=== PATIENT | female | born 1990 | race African-American/Black ===

== ENCOUNTER 2017-06-17 21:29 | Emergency (ER) | payer SELFPAY ==
[2017-06-17 22:01] LABS: #Monocytes 0.5 thou/uL (0.11-0.59); %Basophils 0.3 % (0.0-1.0); %Eosinophils 0.1 % (0.0-10.0); %Monocytes 9.3 % (0.0-10.0); Hematocrit 38.7 % (36.0-47.0); Mean Platelet Volume 6.8 fL (7.4-10.4); Red Blood Cell (RBC) Count 3.97 mill/uL (4.20-5.40); White Blood Cell (WBC) Count 5.5 thou/uL (4.8-10.8)
[2017-06-18 00:25] LABS: Bilirubin Negative (Negative); Blood, Urine Negative (Negative); Glucose, Urine (Dipstick) Negative (Negative); Ketone, Urine Negative (Negative); Nitrite Negative (Negative); Protein, Urine (Dipstick) Negative (Neg-Trace)
[2017-06-18 00:28] LABS: Bacteria/HPF None Seen HPF (None Seen); Hyaline Casts/LPF 0-3 HYALINE CAST LPF (0-3 Hyaline); Squamous Epithelial 0-3 HPF (0-3)
[2017-06-18] MEDS ORDERED: Acetaminophen 500 MG TAB ONE ×2 (00:53→00:55)
--- NOTE | 2017-06-18 07:32 | ULT ---
TRANSABDOMINAL PELVIC ULTRASOUND WITH DOPPLER: (MAX SCALE, COLOR FLOW, AND SPECTRAL DOPPLER) Date: 06/17/17 HISTORY: Vaginal bleeding. FINDINGS: A single live intrauterine gestation is seen with measurements corresponding to an estimated gestati onal age of 10 weeks/6 days and CHRISTIE at 01/07/18. heart rate measures 165 beats/minute. No subc horionic hemorrhage is seen. Both ovaries have a normal appearance and demonstrate flow. No free flu id is seen. IMPRESSION: Single live intrauterine of 10 weeks/6 days estimated gestational age and CHRISTIE at 01/07/18. POS: TOÑO
== END 2017-06-18 01:10 | disposition home or self-care (01) ==
LOC: ERS 21:29
DX: O20.0 Threatened abortion (principal); O23.41 Unspecified infection of urinary tract in pregnancy, first trimester; O99.351 Diseases of the nervous system complicating pregnancy, first trimester; G43.909 Migraine, unspecified, not intractable, without status migrainosus; Z3A.10 10 weeks gestation of pregnancy
CPT/HCPCS: 36415; 76856; 81003; 81015; 84702; 85025; 86900; 86901; 93976

== ENCOUNTER 2017-09-14 09:14 | Emergency (ER) | payer OTHER, SELFPAY ==
[2017-09-14] MEDS ORDERED: Adacel (T-DAP) 0.5 ML VIAL ONE (09:54)
== END 2017-09-14 10:16 | disposition home or self-care (01) ==
LOC: ERS 09:14
DX: O9A.212 Injury, poisoning and certain other consequences of external causes complicating pregnancy, second trimester (principal); S81.831A Puncture wound without foreign body, right lower leg, initial encounter; O10.912 Unspecified pre-existing hypertension complicating pregnancy, second trimester; O99.352 Diseases of the nervous system complicating pregnancy, second trimester; G43.909 Migraine, unspecified, not intractable, without status migrainosus; Z3A.23 23 weeks gestation of pregnancy
CPT/HCPCS: 90471; 90715

== ENCOUNTER → 2017-10-03 | Day surgery (SDC) | payer OTHER ==
[~2017-10-03] MED LIST: Acetaminophen 500 MG TAB PO SCH; FLU VACC QS2017-18 36 mo. & older 0.5 ML SYRINGE IM ONE
[2017-10-03 14:14] VITALS: BP 115/77; TEMP 98.6; BMI 46.5
--- NOTE | 2017-10-03 14:59 | PDOC.EVN ---
Event Note - Event Note Event Note: Patient presents to Triage with the On-Call Residents serving as first evaluators. I have seen the patient and reviewed her care. Here for lower pelvic pain, R.L. No contractions, no LOF HPI: Patient of an outside MD who was seen for sono at that location earlier and here for presure eval. She is a 27 yo [id number] 2, SAB2, Living 4 currently at 26 weeks by 6 week sono. She denies UTI sxs but states "dark urine". No recent trauma. HX Preeclampsia in past and on low dose ASA. review of systems: complete and per HPI Allergies: Fluconazole, tramadol OB history: per HPI. Chicken Catcher HX: HX BV this and recent RX for UTI PHYSICAL: 115/77 NAD Abd soft, NT Cervix pending per Resident Monitor: 140s baseline, mod variability. No decels. No CTX Assessment: LAP, NOS. No evidence PTL Plan: 1. Cath UA 2. VP3 3. Check cervix 4. Observe for now No FFN as no evidence contractions.
[2017-10-03 15:34] LABS: Bilirubin Negative (Negative); Blood, Urine Negative (Negative); Clarity CLEAR (Clear); Glucose, Urine (Dipstick) Negative (Negative); Leukocyte Negative (Negative); Nitrite Negative (Negative); Protein, Urine (Dipstick) Negative (Neg-Trace); Specific Gravity, Urine 1.015 (1.002-1.036)
[2017-10-03 15:37] LABS: Bacteria/HPF None Seen HPF (None Seen); Pathc Cast-AUWi Flag 1.49 (0-2.49); WBC/HPF 0-3 HPF (0-3)
[2017-10-03 16:00] LABS: RBC/HPF 0-3 HPF (0-3)
[2017-10-03 16:01] LABS: Hyaline Casts/LPF 0-3 HYALINE CAST LPF (0-3 Hyaline)
--- NOTE | 2017-10-03 16:19 | PDOC.EVN ---
Event Note - Event Note Event Note: Follow up: VP3 with BV and yeast. Allergy to Diflucan. We will offer vaginal outpatient antifungal. For BV, recommend oral flagyl. Cervix was closed on examination.
== END ==
LOC: L&D/OP 13:26
PROVIDERS: ATTEND Obstetrics & Gynecology
DX: O99.89 Other specified diseases and conditions complicating pregnancy, childbirth and the puerperium (principal); R10.9 Unspecified abdominal pain; R74.8 Abnormal levels of other serum enzymes; O23.592 Infection of other part of genital tract in pregnancy, second trimester; N76.0 Acute vaginitis; O10.012 Pre-existing essential hypertension complicating pregnancy, second trimester; Z88.5 Allergy status to narcotic agent; Z88.8 Allergy status to other drugs, medicaments and biological substances; Z79.82 Long term (current) use of aspirin; Z3A.27 27 weeks gestation of pregnancy
CPT/HCPCS: 81001; 87480; 87510; 87660; 99283; A4353

== ENCOUNTER 2019-06-04 20:04 | Emergency (ER) | payer OTHER ==
[2019-06-04 20:55] VITALS: BP 102/66; TEMP 98.4; BMI 46.0
[2019-06-04] MEDS ORDERED: hydrALAZINE 20 MG/ML VIAL SLOW IVP PRN (21:11)
--- NOTE | 2019-06-04 21:16 | PDOC.EVN ---
Event Note - Event Note Event Note: SIMON Silva Patient has been seen at bedside See Dictation DX: 31-32 weeks s/p fall >24 hrs ago, RH neg. NST reactive Blood type: RH pos To ED for Head trauma protocol
--- NOTE | 2019-06-04 21:35 | HP ---
TIME OF EVALUATION: 2100 hours until 2110 hours. LOCATION: Labor and Delivery Triage bed B. This is a patient of Dr. Victoria who is at [facility]. REASON FOR EVALUATION: Patient had a fall yesterday at 1900 hours and also hit her head yesterday and she is now experiencing a headache. HISTORY OF PRESENT ILLNESS: This is a 28-year-old , grand multiparous patient who is a AB2 with a history of 4 deliveries and 1 term . She also had 2 miscarriages. She is currently at 31 weeks and 3 days. She states that she fell yesterday at about 1900 hours that is 7:00 p.m. when she fell down some stairs and thinks she hit the back of her head. She denies any direct abdominal trauma. She has no leakage of fluid and no lj vaginal bleeding. She has good movement and no real contractions. She states that she knows what labor feels like and does not feel that this is labor. REVIEW OF SYSTEMS: Complete review of systems was checked and is otherwise negative unless specified in the HPI. She does state that she had some slight bloody discharge, but no evidence of true vaginal bleeding. PAST MEDICAL HISTORY: Negative. PAST OBSTETRICAL HISTORY: Significant for PIH in the past pregnancies. NEUROLOGICAL HISTORY: She has a history of migraines in the past. PAST SURGICAL HISTORY: Negative. MEDICATIONS: She is currently on aspirin and progesterone. She states that she is taking a progesterone "pill" but not on the shot. This is for her labor history. PHYSICAL EXAMINATION: GENERAL: She is in no acute distress. ABDOMEN: Soft and nontender. There is no evidence of uterine hypertonus. PELVIC: Perineum exam is dry without evidence of bleeding or leakage of fluid. Cervical exam was deferred as there is no clinical evidence of labor. On monitor, heart tones are in the 140s to 150s with moderate variability and the strip is reactive. There are no contractions on tocodynamometer. Her blood type is B positive. ASSESSMENT/PLAN: 1. This is a grand multiparous patient who is a G8, P5 at 31 weeks and 3 days who had a fall yesterday at 1900 hours with a headache now that has occurred since the fall. She was sent from the ER for evaluation of the baby, but as the baby is stable and there is no evidence of labor or abruption, and that she is greater than 24 hours from the fall, I am sending her to the ER to follow up with their head trauma protocol. I have seen the patient and I have discussed this with her. 2. The patient also states that she does not suspect that she is in labor and I would agree with that assessment clinically. Job ID: [id number] [id number]
== END 2019-06-04 22:30 | disposition home or self-care (01) ==
LOC: L&D/OP 20:04 → ERS 20:04 → EDSTATUS 21:26 → ERS 22:30
DX: O9A.213 Injury, poisoning and certain other consequences of external causes complicating pregnancy, third trimester (principal); S09.90XA Unspecified injury of head, initial encounter; W10.9XXA Fall (on) (from) unspecified stairs and steps, initial encounter
CPT/HCPCS: 99283

== ENCOUNTER 2021-09-19 14:23 | Emergency (ER) | payer MEDICAID ==
[2021-09-19 15:07] LABS: #Lymphocytes 1.4 thou/uL (1.20-3.40); #Monocytes 0.4 thou/uL (0.11-0.59); #Neutrophils 3.5 thou/uL (1.40-6.50); %Basophils 0.5 % (0.0-1.0); %Eosinophils 0.1 % (0.0-10.0); %Lymphocytes 26.2 % (21.0-51.0); %Monocytes 8.3 % (0.0-10.0); %Neutrophils 64.9 % (42.0-75.0); Mean Corpuscular Hemoglobin 33.8 pg (27.0-31.0); Mean Corpuscular Volume 96.7 fL (78.0-98.0); Mean Platelet Volume 6.7 fL (7.4-10.4); Platelet Count 316 thou/uL (130-400); RBC Distribution Width 12.7 % (11.5-14.5); Red Blood Cell (RBC) Count 3.84 mill/uL (4.20-5.40); White Blood Cell (WBC) Count 5.3 thou/uL (4.8-10.8)
[2021-09-19 15:31] LABS: ALT (SGPT) 44 U/L (8-55); AST (SGOT) 21 U/L (5-34); Albumin 3.9 g/dL (3.5-5.0); Alkaline Phosphatase 64 U/L (40-110); Anion Gap 12 mmol/L (10-20); BUN (Urea Nitrogen) 6 mg/dL (7.0-18.7); Bilirubin, Total 0.4 mg/dL (0.2-1.2); Calc. Creatinine Clearance 0 mL/min (70-130); Calcium 9.4 mg/dL (7.8-10.44); Carbon Dioxide 21 mmol/L (22-29); Chloride 105 mmol/L (98-107); Globulin 3.3 g/dL (2.4-3.5); Glucose 87 mg/dL (70-105); Lipase 11 U/L (8-78); Potassium 3.8 mmol/L (3.5-5.1); Protein, Total 7.2 g/dL (6.0-8.3); Sodium 134 mmol/L (136-145)
[2021-09-19] MEDS ORDERED: diphenhydrAMINE 50 MG/ML VIAL ONE (17:29)
[2021-09-19] MEDS ORDERED: Metoclopramide HCl 10 MG/2 ML VIAL ONE (17:29)
== END 2021-09-19 18:55 | disposition home or self-care (01) ==
LOC: ERS 14:23
DX: O20.0 Threatened abortion (principal); O21.0 Mild hyperemesis gravidarum; O99.891 Other specified diseases and conditions complicating pregnancy; R07.89 Other chest pain; O99.331 Smoking (tobacco) complicating pregnancy, first trimester; F17.210 Nicotine dependence, cigarettes, uncomplicated; Z3A.09 9 weeks gestation of pregnancy
CPT/HCPCS: 36415; 71045; 80053; 83690; 84484; 84702; 85025; 93005; 96374; 96375; J1200; J2765

== ENCOUNTER 2021-10-11 15:01 | Inpatient (IN) | payer SELFPAY ==
[2021-10-11] MEDS ORDERED: Ondansetron PF 4 MG/2 ML Vial ONE (15:53)
[2021-10-11 16:24] LABS: SARS-CoV-2 NAA Rapid Test Not Detected (NotDetected)
[2021-10-11] MEDS ORDERED: Promethazine HCl 25 MG/ML VIAL ONE (16:37)
[2021-10-11 16:53] LABS: #Lymphocytes 0.7 thou/uL (1.20-3.40); #Monocytes 0.5 thou/uL (0.11-0.59); #Neutrophils 3.2 thou/uL (1.40-6.50); %Eosinophils 0.5 % (0.0-10.0); %Lymphocytes 16.3 % (21.0-51.0); %Monocytes 11.8 % (0.0-10.0); %Neutrophils 71.4 % (42.0-75.0); Hemoglobin 10.2 g/dL (12.0-16.0); Mean Corpuscular HGB CONC 32.4 g/dL (32.0-36.0); Mean Corpuscular Hemoglobin 32.1 pg (27.0-31.0); Mean Corpuscular Volume 99.3 fL (78.0-98.0); Platelet Count 359 thou/uL (130-400); RBC Distribution Width 13.2 % (11.5-14.5); Red Blood Cell (RBC) Count 3.19 mill/uL (4.20-5.40); White Blood Cell (WBC) Count 4.5 thou/uL (4.8-10.8)
[2021-10-11 17:03] LABS: ALT (SGPT) 11 U/L (8-55); AST (SGOT) 22 U/L (5-34); Albumin 3.7 g/dL (3.5-5.0); Alkaline Phosphatase 69 U/L (40-110); Anion Gap 14 mmol/L (10-20); BUN (Urea Nitrogen) 8 mg/dL (7.0-18.7); Bilirubin, Total 0.2 mg/dL (0.2-1.2); Calc. Creatinine Clearance 0 mL/min (70-130); Calcium 8.7 mg/dL (7.8-10.44); Carbon Dioxide 18 mmol/L (22-29); Chloride 107 mmol/L (98-107); Globulin 3.8 g/dL (2.4-3.5); Glucose 90 mg/dL (70-105); Lipase 13 U/L (8-78); Potassium 4.1 mmol/L (3.5-5.1); Protein, Total 7.5 g/dL (6.0-8.3); Sodium 135 mmol/L (136-145)
[2021-10-11 17:36] LABS: Bacteria/HPF 4+ HPF (None Seen); Bilirubin Negative (Negative); Blood, Urine 2+ (Negative); Glucose, Urine (Dipstick) Normal (Negative); Ketone, Urine Negative (Negative); Leukocyte Negative Leu/uL (Negative); Nitrite Negative (Negative); Protein, Urine (Dipstick) 30 mg/dL (Neg-Trace); RBC/HPF 0-3 HPF (0-3); Specific Gravity, Urine 1.031 (1.002-1.036); Urobilinogen Normal mg/dL (Less than 2); WBC/HPF 0-3 HPF (0-3); pH, Urine 7.5 (5.0-9.0)
[2021-10-11 17:38] LABS: Clarity Turbid (Clear)
[2021-10-11 17:39] LABS: Pregnancy Test - Urine (BHCG) POSITIVE (Negative); Pregu Control Background? CLEAR/WHITE (CLR/WHITE); Pregu Control Bar Appear? YES (CONTROL BAR); Specific Gravity 1.031 (1.002-1.036)
[2021-10-11] MEDS ORDERED: Pantoprazole 40 MG VIAL ONE (18:14)
[2021-10-11] MEDS ORDERED: diphenhydrAMINE 50 MG/ML VIAL ONE (18:16)
[2021-10-11] MEDS ORDERED: Metoclopramide HCl 10 MG/2 ML VIAL ONE (18:16)
[2021-10-11] MEDS ORDERED: Morphine 4 MG/ML VIAL ONE (20:21)
[2021-10-11] MEDS ORDERED: Ondansetron ODT 4 MG TAB PO PRN (23:05)
[2021-10-11 23:11] VITALS: BMI 49.3
[2021-10-11] MEDS ORDERED: Acetaminophen 325 MG TAB PO PRN (23:15)
[2021-10-11] MEDS ORDERED: Ondansetron ODT 4 MG TAB SL PRN (23:15)
[2021-10-11] MEDS ORDERED: Ondansetron PF 4 MG/2 ML Vial IVP PRN (23:15)
[2021-10-11] MEDS: diphenhydrAMINE 25 MG CAP PO PRN (23:58)
[2021-10-11] MEDS: Sodium Chloride 0.9% 1,000 ML IV SCH (23:58)
[2021-10-11] MEDS: Promethazine HCl 25 MG/ML VIAL IM PRN (23:58)
[2021-10-12] MEDS: Morphine 4 MG/ML VIAL SLOW IVP PRN ×3 (00:07→21:56)
[2021-10-12 05:47] LABS: Troponin I Less than 0.010 ng/mL (< 0.028)
[2021-10-12] MEDS: Promethazine HCl 25 MG/ML VIAL IM PRN ×3 (08:15→19:30)
[2021-10-12] MEDS ORDERED: FLU VACC QS2021-22(6MOS UP)/PF 60 MCG/0.5 ML SYRINGE IM ONE (09:00)
[2021-10-12 09:03] LABS: Iron 46 ug/dL (50-170); Iron Binding Capacity, Total 243 mcg/dL (265-497)
[2021-10-12] MEDS: Pantoprazole 40 MG VIAL IVP SCH ×2 (09:28→20:00)
[2021-10-12] MEDS: Sodium Chloride 0.9% 1,000 ML IV SCH (09:29)
[2021-10-12 20:45] LABS: #Basophils 0.1 thou/uL (0.0-0.2); #Lymphocytes 1.2 thou/uL (1.20-3.40); #Monocytes 0.6 thou/uL (0.11-0.59); #Neutrophils 2.5 thou/uL (1.40-6.50); %Basophils 1.5 % (0.0-1.0); %Eosinophils 0.3 % (0.0-10.0); %Lymphocytes 26.9 % (21.0-51.0); %Monocytes 12.8 % (0.0-10.0); %Neutrophils 58.4 % (42.0-75.0); Mean Corpuscular HGB CONC 32.6 g/dL (32.0-36.0); Mean Corpuscular Hemoglobin 32.7 pg (27.0-31.0); Platelet Count 365 thou/uL (130-400); RBC Distribution Width 13.7 % (11.5-14.5); Red Blood Cell (RBC) Count 3.38 mill/uL (4.20-5.40); White Blood Cell (WBC) Count 4.3 thou/uL (4.8-10.8)
[2021-10-12 21:03] LABS: Anion Gap 12 mmol/L (10-20); BUN (Urea Nitrogen) 6 mg/dL (7.0-18.7); Calc. Creatinine Clearance 201 mL/min (70-130); Calcium 8.3 mg/dL (7.8-10.44); Carbon Dioxide 19 mmol/L (22-29); Chloride 109 mmol/L (98-107); Glucose 87 mg/dL (70-105); Potassium 3.5 mmol/L (3.5-5.1); Sodium 136 mmol/L (136-145)
[2021-10-13] MEDS: Morphine 4 MG/ML VIAL SLOW IVP PRN ×3 (02:13→23:18)
[2021-10-13] MEDS ORDERED: Midazolam HCl 2 mg/2 ml Vial ONE (08:25)
[2021-10-13] MEDS ORDERED: diphenhydrAMINE 50 MG/ML VIAL ONE (09:36)
[2021-10-13] MEDS ORDERED: PROPOFOL 200 MG/20 ML VIAL ONE (09:36)
[2021-10-13] MEDS ORDERED: Promethazine HCl 25 MG/ML VIAL IVPB PRN (10:03)
[2021-10-13] MEDS ORDERED: Ondansetron HCl/PF 4 MG/2 ML Vial IVP PRN (10:03)
[2021-10-13] MEDS ORDERED: Promethazine HCl 25 MG/ML VIAL IM PRN (10:03)
[2021-10-13] MEDS ORDERED: Ondansetron PF 4 MG/2 ML Vial ONE (10:11)
[2021-10-13] MEDS: Pantoprazole 40 MG VIAL IVP SCH ×2 (11:04→20:18)
[2021-10-13] MEDS: Promethazine HCl 25 MG/ML VIAL IM PRN ×2 (11:04→23:17)
[2021-10-14] MEDS: diphenhydrAMINE 25 MG CAP PO PRN (00:18)
[2021-10-14] MEDS: Morphine 4 MG/ML VIAL SLOW IVP PRN ×2 (05:29→09:59)
[2021-10-14] MEDS: Pantoprazole 40 MG VIAL IVP SCH (09:03)
[2021-10-14] MEDS: Promethazine HCl 25 MG/ML VIAL IM PRN (09:58)
[2021-10-14 11:46] VITALS: TEMP 98.1
[2021-10-14 14:10] VITALS: BP 119/69
== END 2021-10-14 15:07 | disposition home or self-care (01) | DRG 378 ==
LOC: ERS 15:01 → SURG A 19:16 → 2NO 10-12 11:09 → OBSVTOIN 10-12 16:06
PROVIDERS: ADMIT Internal Medicine; ATTEND Internal Medicine
PROC: 0DB78ZX Excision of Stomach, Pylorus, Via Natural or Artificial Opening Endoscopic, Diagnostic (ICD-10-PCS; principal; 2021-10-13)
DX: K29.01 Acute gastritis with bleeding (principal); D62 Acute posthemorrhagic anemia; E87.1 Hypo-osmolality and hyponatremia; Z68.42 Body mass index [BMI] 45.0-49.9, adult; Z20.822 Contact with and (suspected) exposure to COVID-19; E66.01 Morbid (severe) obesity due to excess calories; G43.909 Migraine, unspecified, not intractable, without status migrainosus; R00.1 Bradycardia, unspecified; I10 Essential (primary) hypertension; R07.89 Other chest pain; Z88.6 Allergy status to analgesic agent; Z88.8 Allergy status to other drugs, medicaments and biological substances; Z79.899 Other long term (current) drug therapy; Z98.890 Other specified postprocedural states
CPT/HCPCS: 36415; 36416; 71045; 76705; 78227; 80048; 80053; 81003; 81015; 81025; 82728; 83540; 83550; 83690; 84484; 84702; 85025; 88305; 88312; 88313; 93005; 93010; 93306; 96376; A9537; C9113; G0378; J1200; J2250; J2270; J2405; J2550; J2704; J2765; J7050; U0002

== ENCOUNTER 2022-02-17 11:33 | Emergency (ER) | payer MEDICAID, SELFPAY ==
[2022-02-17 12:21] LABS: #Monocytes 0.3 thou/uL (0.11-0.59); #Neutrophils 2.6 thou/uL (1.40-6.50); %Basophils 1.1 % (0.0-1.0); %Eosinophils 0.2 % (0.0-10.0); %Lymphocytes 25.3 % (21.0-51.0); %Monocytes 6.9 % (0.0-10.0); %Neutrophils 66.6 % (42.0-75.0); Hemoglobin 11.3 g/dL (12.0-16.0); Mean Corpuscular HGB CONC 33.4 g/dL (32.0-36.0); Mean Corpuscular Hemoglobin 32.3 pg (27.0-31.0); Mean Corpuscular Volume 96.8 fL (78.0-98.0); Mean Platelet Volume 7.1 fL (7.4-10.4); Platelet Count 306 thou/uL (130-400); White Blood Cell (WBC) Count 3.9 thou/uL (4.8-10.8)
[2022-02-17 12:47] LABS: Bilirubin Negative (Negative); Blood, Urine Negative (Negative); Clarity Clear (Clear); Glucose, Urine (Dipstick) Normal (Negative); Ketone, Urine Negative (Negative); Leukocyte Negative Leu/uL (Negative); Nitrite Negative (Negative); Protein, Urine (Dipstick) Negative (Neg-Trace); Specific Gravity, Urine 1.023 (1.002-1.036); Urobilinogen Normal mg/dL (Less than 2); pH, Urine 6.5 (5.0-9.0)
[2022-02-17 12:52] LABS: ALT (SGPT) 9 U/L (8-55); AST (SGOT) 11 U/L (5-34); Albumin 3.7 g/dL (3.5-5.0); Alkaline Phosphatase 55 U/L (40-110); Anion Gap 11 mmol/L (10-20); BUN (Urea Nitrogen) 7 mg/dL (7.0-18.7); Bilirubin, Total 0.3 mg/dL (0.2-1.2); Calc. Creatinine Clearance 0 mL/min (70-130); Calcium 8.8 mg/dL (7.8-10.44); Carbon Dioxide 21 mmol/L (22-29); Chloride 107 mmol/L (98-107); Globulin 3.2 g/dL (2.4-3.5); Glucose 95 mg/dL (70-105); Potassium 3.6 mmol/L (3.5-5.1); Protein, Total 6.9 g/dL (6.0-8.3); Sodium 135 mmol/L (136-145)
[2022-02-17 16:03] LABS: SARS-CoV-2 NAA Rapid Test Not Detected (NotDetected)
== END 2022-02-17 15:46 | disposition short-term general hospital (02) ==
LOC: ERS 11:33
DX: O02.0 Blighted ovum and nonhydatidiform mole (principal); O10.911 Unspecified pre-existing hypertension complicating pregnancy, first trimester; O99.331 Smoking (tobacco) complicating pregnancy, first trimester; F17.210 Nicotine dependence, cigarettes, uncomplicated; Z3A.01 Less than 8 weeks gestation of pregnancy; Z20.822 Contact with and (suspected) exposure to COVID-19; Z79.899 Other long term (current) drug therapy
CPT/HCPCS: 36415; 76856; 80053; 81003; 84702; 85025; 86850; 86900; 86901; 94760; U0002

== ENCOUNTER 2024-10-04 23:05 | Emergency (ER) | payer SELFPAY ==
[2024-10-05] MEDS ORDERED: Ketorolac Tromethamine 30 MG (1 mL) VIAL ONE (00:09)
== END 2024-10-05 00:31 | disposition home or self-care (01) ==
LOC: ERS 23:05
DX: K08.89 Other specified disorders of teeth and supporting structures (principal); G43.909 Migraine, unspecified, not intractable, without status migrainosus; F17.210 Nicotine dependence, cigarettes, uncomplicated
CPT/HCPCS: 96372; 99282; J1885